=== PATIENT | female | born 1935 | race African-American/Black ===

== ENCOUNTER 2017-09-16 22:47 | Observation (INO) | payer MEDICARE ==
[2017-09-16 23:09] VITALS: RESP 18
[2017-09-16] MEDS ORDERED: diphenhydrAMINE 50 MG/ML 1 ML VIAL IVP STA (23:12)
[2017-09-16] MEDS ORDERED: methylPREDNISolone SOD SUCCI 125 MG/2 ML VIAL IV STA (23:12)
[2017-09-16] MEDS ORDERED: FAMOTIDINE 20 MG/2 ML VIAL IV STA (23:12)
--- NOTE | 2017-09-16 23:15 | ED ---
General Adult HPI - General Chief complaint: Allergic Reaction Stated complaint: Allergic Reaction Time Seen by Provider: 09/16/17 23:06 Source: patient, RN notes reviewed Mode of arrival: ambulatory Limitations: no limitations - History of Present Illness Initial comments: Patient is a pleasant 81-year-old female presenting to the emergency Department with lip swelling. Onset was a couple hours ago. Symptoms remain despite taking 2 Benadryl pills at home couple hours ago. Patient feels some fullness in her throat as well. Otherwise no dyspnea. Patient states her tongue might feel slightly swollen. Patient does have a history of similar symptoms previously however is unclear why. Review of medications reveals patient is on Lotrel that does contain Benzapril. - Related Data Home Medications Medication Instructions Recorded Confirmed Aspirin [Adult Low Dose Aspirin EC] 81 mg PO DAILY 09/16/17 09/16/17 Calcium Carbonate/Vitamin D3 2 tab PO DAILY 09/16/17 09/16/17 [Calcium 600-Vit D3 400 Tablet] Hydrochlorothiazide [Hydrodiuril] 25 mg PO DAILY 09/16/17 09/16/17 Multivit-Min/Iron/Folic/Lutein 1 tab PO DAILY 09/16/17 09/16/17 [Centrum Silver Women Tablet] [place]-3 Fatty Acids [[place]-3] 1,000 mg PO DAILY 09/16/17 09/16/17 amLODIPine BESYLATE/BENAZEPRIL 1 cap PO DAILY 09/16/17 09/16/17 [Lotrel 10-20 mg Capsule] Allergies Allergy/AdvReac Type Severity Reaction Status Date / Time No Known Allergies Allergy Verified 09/16/17 23:24 Review of Systems ROS Statement: Those systems with pertinent positive or pertinent negative responses have been documented in the HPI. ROS Other: All systems not noted in ROS Statement are negative. Constitutional: Denies: fever Eyes: Denies: eye pain ENT: Denies: ear pain Respiratory: Denies: cough Cardiovascular: Denies: chest pain Endocrine: Denies: fatigue Gastrointestinal: Denies: abdominal pain Genitourinary: Denies: dysuria Musculoskeletal: Denies: back pain Skin: Denies: rash Neurological: Denies: weakness Past Medical History Past Medical History: Hypertension History of Any Multi-Drug Resistant Organisms: None Reported Past Surgical History: Hysterectomy Past Psychological History: No Psychological Hx Reported Smoking Status: Never smoker Past Alcohol Use History: None Reported Past Drug Use History: None Reported General Exam Limitations: no limitations General appearance: alert, in no apparent distress Head exam: Present: atraumatic Eye exam: Present: normal appearance, PERRL ENT exam: Present: other (Mild to moderate angioedema on the right side upper and lower lips. No tongue swelling. Mild edema of the uvula, more on the left side) Neck exam: Present: normal inspection Respiratory exam: Present: normal lung sounds bilaterally. Absent: respiratory distress, wheezes Cardiovascular Exam: Present: regular rate, normal rhythm GI/Abdominal exam: Present: soft. Absent: tenderness Extremities exam: Present: normal inspection Neurological exam: Present: alert Psychiatric exam: Present: normal affect, normal mood Skin exam: Present: normal color Course Vital Signs 09/16/17 09/16/17 22:56 23:07 Temperature 98.3 F Pulse Rate 86 Respiratory 20 18 Rate Blood Pressure 175/74 O2 Sat by Pulse 96 Oximetry - Reevaluation(s) Reevaluation #1: 09/16/17 23:14 Patient is advised to discontinue Lotrel until further evaluation and that this may be the cause of her symptoms. Medical Decision Making - Medical Decision Making Patient reevaluated with only mild improvement. Patient updated on plan. Dr. Bradley has been paged for admission. Disposition Clinical Impression: Angioedema Disposition: ADMITTED IP TO THIS HOSP Is patient prescribed a controlled substance at d/c from ED?: No Referrals: Twin Bradley MD [Primary Care Provider] - 1-2 days Decision Time: 00:42
[2017-09-17] MEDS ORDERED: NALOXONE 0.4 MG/ML 1 ML VIAL IV PRN (00:42)
[2017-09-17] MEDS ORDERED: SODIUM CHLORIDE 0.9% 1,000 ML IV SCH (00:45)
[2017-09-17] MEDS: diphenhydrAMINE 50 MG/ML 1 ML VIAL IVP SCH ×2 (05:20→12:50)
[2017-09-17] MEDS: methylPREDNISolone SOD SUCCI 125 MG/2 ML VIAL IV SCH ×2 (05:21→12:51)
--- NOTE | 2017-09-17 07:40 | P.HPIM ---
History of Present Illness Chief Complaint: Facial swelling This is a history of physical on an 81-year-old black female with known history of hypertension. The patient states that [place] that she to believe does not eat and started having facial edema and some fullness in swallowing. No pain no shortness of breath. No cough stated. The patient then presented to the emergency room and was diagnosed with appropriate angioedema. She's been on Lotrel for many many years and has an underlying history of hypertension which is stable. The patient does not describe any diarrhea or urticaria stated. No overt itching stated. No significant fever or chills are noted. She is now admitted for appropriate methylprednisone and antihistamine. ? need for Iticabant. Review of Systems Constitutional: Denies chills, Denies fever Eyes: denies blurred vision, denies pain Ears, nose, mouth and throat: Denies headache, Denies sore throat Cardiovascular: Denies chest pain, Denies shortness of breath Respiratory: Denies cough Integumentary: Reports rash Past Medical History Past Medical History: Hypertension History of Any Multi-Drug Resistant Organisms: None Reported Past Surgical History: Hysterectomy Past Psychological History: No Psychological Hx Reported Smoking Status: Never smoker Past Alcohol Use History: None Reported Past Drug Use History: None Reported - Past Family History Father Family Medical History: No Reported History Medications and Allergies Home Medications Medication Instructions Recorded Confirmed Type Aspirin [Adult Low Dose Aspirin EC] 81 mg PO DAILY 09/16/17 09/16/17 History Calcium Carbonate/Vitamin D3 2 tab PO DAILY 09/16/17 09/16/17 History [Calcium 600-Vit D3 400 Tablet] Hydrochlorothiazide [Hydrodiuril] 25 mg PO DAILY 09/16/17 09/16/17 History Multivit-Min/Iron/Folic/Lutein 1 tab PO DAILY 09/16/17 09/16/17 History [Centrum Silver Women Tablet] [place]-3 Fatty Acids [[place]-3] 1,000 mg PO DAILY 09/16/17 09/16/17 History amLODIPine BESYLATE/BENAZEPRIL 1 cap PO DAILY 09/16/17 09/16/17 History [Lotrel 10-20 mg Capsule] Allergies Allergy/AdvReac Type Severity Reaction Status Date / Time No Known Allergies Allergy Verified 09/16/17 23:24 Physical Exam Vitals: Vital Signs Temp Pulse Pulse Resp BP BP Pulse Ox 09/17/17 04:57 97.6 F 86 18 148/70 100 09/17/17 01:19 76 18 156/79 100 09/16/17 23:07 18 09/16/17 22:56 98.3 F 86 20 175/74 96 Intake and Output 09/16/17 09/17/17 09/17/17 22:59 06:59 14:59 Other: Voiding Method Toilet # Voids 2 Weight 63.957 kg - Constitutional General appearance: no acute distress - EENT Eyes: EOMI - Neck Neck: no lymphadenopathy - Respiratory Respiratory: bilateral: CTA - Cardiovascular Rhythm: regular Heart sounds: normal: S1, S2 Abnormal Heart Sounds: no S3 Gallop - Gastrointestinal General gastrointestinal: soft, no tenderness - Integumentary Edema of the face. - Neurologic Neurologic: CNII-XII intact - Musculoskeletal Musculoskeletal: gait normal Thrombosis Risk Factor Assmnt - Choose All That Apply Each Risk Factor Represents 3 Points: Age 75 years or older Thrombosis Risk Factor Assessment Total Risk Factor Score: 3 Thrombosis Risk Factor Assessment Level: Moderate Risk Assessment and Plan (1) Hypertension Current Visit: Yes Status: Acute Code(s): I10 - ESSENTIAL (PRIMARY) HYPERTENSION SNOMED Code(s): 91352391 Plan: Continue current regimen treatment. Anticipate discharge in a.m. We will switch from Lotrel to Cozaar and Norvasc. The patient is significant improving. Otherwise, the patient is full code.
[2017-09-17 08:02] VITALS: BP 170/77; PULSE 51; TEMP 97.7
[2017-09-17] MEDS ORDERED: ASPIRIN 81 MG PO SCH (09:00)
[2017-09-17] MEDS ORDERED: LOSARTAN 50 MG TAB PO SCH (09:00)
[2017-09-17] MEDS ORDERED: amLODIPine 5 MG TAB PO SCH (09:00)
[2017-09-17] MEDS ORDERED: CALCIUM CARB-VIT D 500MG-200UN 1 EACH TAB PO SCH (09:00)
[2017-09-17] MEDS ORDERED: FAMOTIDINE 20 MG/2 ML VIAL IV SCH (09:00)
[2017-09-17] MEDS ORDERED: NON-FORMULARY DRUG (Omega-3 Fatty Acids [Omega-3] 1,000 MG) PO SCH (09:00)
[2017-09-17] MEDS ORDERED: HYDROCHLOROTHIAZIDE 25 MG TAB PO SCH (09:00)
[2017-09-17] MEDS ORDERED: MULTIVITAMINS, THERA 1 EACH TAB PO SCH (12:00)
--- NOTE | 2017-09-17 15:05 | P.DS ---
Providers Date of admission: 09/17/17 00:42 Expected date of discharge: 09/17/17 Attending physician: Twin Bradley Primary care physician: Twin Bradley - Discharge Diagnosis(es) (1) Hypertension Current Visit: Yes Status: Acute Hospital Course: This is discharge from an 7-year-old black female sounds admitted for anaphylaxis/angioedema. We stopped her DYLON inhibitor and put her on Cozaar instead. The patient is not tolerating diet. She wished to be discharged a little earlier than I preferred, but she understands her risks and benefits of her choice. She does have a daughter who is a nurse who will observe her closely. She will follow-up with me in about a couple days. The patient is discharged in stable condition. Plan - Discharge Summary New Discharge Prescriptions: New amLODIPine [Norvasc] 10 mg PO DAILY #30 tab Losartan [Cozaar] 50 mg PO DAILY #30 tab predniSONE 0 mg PO DIRECTED #18 tab Continue Multivit-Min/Iron/Folic/Lutein [Centrum Silver Women Tablet] 1 tab PO DAILY Calcium Carbonate/Vitamin D3 [Calcium 600-Vit D3 400 Tablet] 2 tab PO DAILY Aspirin [Adult Low Dose Aspirin EC] 81 mg PO DAILY Hydrochlorothiazide [Hydrodiuril] 25 mg PO DAILY [place]-3 Fatty Acids [[place]-3] 1,000 mg PO DAILY Discontinued amLODIPine BESYLATE/BENAZEPRIL [Lotrel 10-20 mg Capsule] 1 cap PO DAILY Discharge Medication List Aspirin [Adult Low Dose Aspirin EC] 81 mg PO DAILY 09/16/17 [History] Calcium Carbonate/Vitamin D3 [Calcium 600-Vit D3 400 Tablet] 2 tab PO DAILY [History] Hydrochlorothiazide [Hydrodiuril] 25 mg PO DAILY 09/16/17 [History] Multivit-Min/Iron/Folic/Lutein [Centrum Silver Women Tablet] 1 tab PO DAILY [History] [place]-3 Fatty Acids [[place]-3] 1,000 mg PO DAILY 09/16/17 [History] Losartan [Cozaar] 50 mg PO DAILY #30 tab 09/17/17 [Rx] amLODIPine [Norvasc] 10 mg PO DAILY #30 tab 09/17/17 [Rx] predniSONE 0 mg PO DIRECTED #18 tab 09/17/17 [Rx] Follow up Appointment(s)/Referral(s): Twin Bradley MD [Primary Care Provider] - 1-2 days Discharge Disposition: HOME SELF-CARE
== END 2017-09-17 15:39 | disposition home or self-care (01) ==
LOC: EC 22:47 → 5MS5E 09-17 00:42
PROVIDERS: ADMIT Family Medicine; ATTEND Family Medicine
DX: T78.3XXA Angioneurotic edema, initial encounter (principal); I10 Essential (primary) hypertension; Z79.82 Long term (current) use of aspirin; Z79.899 Other long term (current) drug therapy; Z90.710 Acquired absence of both cervix and uterus
CPT/HCPCS: 99285 ×2; 96374 ×2; 96375 ×3; 96376; G0378; J1200 ×2; J2930 ×2

== ENCOUNTER → 2017-10-08 | Outpatient (CLI) | payer MEDICARE ==
[2017-10-08 11:32] LABS: Basophils % (A) 1 %; Eosinophils # (A) 0.2 k/uL (0-0.7); Eosinophils % (A) 5 %; HCT 36.3 % (34.0-46.0); HGB 11.8 gm/dL (11.4-16.0); Lymphocytes # (A) 0.9 k/uL (1.0-4.8); Lymphocytes % (A) 24 %; MCH 28.1 pg (25.0-35.0); MCHC 32.5 g/dL (31.0-37.0); MCV 86.5 fL (80.0-100.0); Mean Platelet Volume 6.5; Monocytes # (A) 0.2 k/uL (0-1.0); Monocytes % (A) 5 %; Neutrophils # (A) 2.3 k/uL (1.3-7.7); Neutrophils % (A) 64 %; Platelet Count 294 k/uL (150-450); RDW 12.6 % (11.5-15.5); WBC 3.6 k/uL (3.8-10.6)
== END ==
LOC: LABWHC1 10:46
PROVIDERS: ATTEND Allergy & Immunology
DX: T78.3XXA Angioneurotic edema, initial encounter (principal)
CPT/HCPCS: 36415; 85025; 86160; 86161

== ENCOUNTER → 2017-10-22 | Outpatient (CLI) | payer MEDICARE | END | disposition home or self-care (01) | LOC: LABWHC1 11:16 | PROVIDERS: ATTEND Allergy & Immunology | DX: T78.3XXA Angioneurotic edema, initial encounter (principal) | CPT/HCPCS: 36415; 86003 ==

== ENCOUNTER 2019-10-16 14:22 | Emergency (ER) | payer MEDICARE ==
[2019-10-16 14:27] VITALS: BP 170/78; PULSE 88; RESP 18; TEMP 98.4
[2019-10-16] MEDS ORDERED: ERYTHROMYCIN 5 MG/GM OPHTH OINT 3.5 GM TUBE RIGHT EYE STA (14:42)
--- NOTE | 2019-10-16 14:42 | ED ---
General Adult HPI - General Source: patient, RN notes reviewed, old records reviewed Mode of arrival: ambulatory Limitations: no limitations <Leonides Lr - Last Filed: 10/16/19 14:46> <Angie Torres - Last Filed: 10/19/19 01:35> - General Chief complaint: Eye Problems Stated complaint: eye problems Time Seen by Provider: 10/16/19 14:27 - History of Present Illness Initial comments: 83-year-old female patient past history of hypertension presents to the chief complaint of right lower eyelid swelling and has been ongoing for 2 days. Patient denies any headaches, changes in vision. Patient is not a contact lens user. Denies any trauma or scratches to the eye. Systemic: Pt denies fatigue, fever/chills, rash. Pt denies weakness, night sweats, weight loss. Neuro: Pt denies headache, visual disturbances, syncope or pre-syncope. HEENT: Pt denies ocular discharge or irritation, otalgia, rhinorrhea, pha ryngitis or notable lymphadenopathy. Cardiopulmonary: Pt denies chest pain, SOB, heart palpitations, dyspnea on exertion. Abdominal/GI: Pt denies abdominal pain, n/v/d. : Pt denies dysuria, burning w/ urination, frequency/urgency. Denies new onset urinary or bowel incontinence. MSK: Pt denies myalgia, loss of strength or function in extremities. Neuro: Pt denies new onset weakness, paresthesias. (Leonides Lr) - Related Data Home Medications Medication Instructions Recorded Confirmed Aspirin [Adult Low Dose Aspirin EC] 81 mg PO DAILY 09/16/17 09/16/17 Calcium Carbonate/Vitamin D3 2 tab PO DAILY 09/16/17 09/16/17 [Calcium 600-Vit D3 400 Tablet] Hydrochlorothiazide [Hydrodiuril] 25 mg PO DAILY 09/16/17 09/16/17 Multivit-Min/Iron/Folic/Lutein 1 tab PO DAILY 09/16/17 09/16/17 [Centrum Silver Women Tablet] [place]-3 Fatty Acids [[place]-3] 1,000 mg PO DAILY 09/16/17 09/16/17 Previous Rx's Medication Instructions Recorded Losartan [Cozaar] 50 mg PO DAILY #30 tab 09/17/17 amLODIPine [Norvasc] 10 mg PO DAILY #30 tab 09/17/17 predniSONE [Deltasone] 0 mg PO DIRECTED #18 tab 09/17/17 Erythromycin Ophth Oint [Romycin 1 applic RIGHT EYE QID 5 Days #1 10/16/19 Ophth Oint] tube Allergies Allergy/AdvReac Type Severity Reaction Status Date / Time No Known Allergies Allergy Verified 10/16/19 14:24 Review of Systems ROS Other: All systems not noted in ROS Statement are negative. <Leonides Lr - Last Filed: 10/16/19 14:46> ROS Other: All systems not noted in ROS Statement are negative. <Angie Torres - Last Filed: 10/19/19 01:35> ROS Statement: Those systems with pertinent positive or pertinent negative responses have been documented in the HPI. Past Medical History Past Medical History: Hypertension History of Any Multi-Drug Resistant Organisms: None Reported Past Surgical History: Hysterectomy Past Psychological History: No Psychological Hx Reported Smoking Status: Never smoker Past Alcohol Use History: None Reported Past Drug Use History: None Reported - Past Family History Father Family Medical History: No Reported History <Leonides Lr - Last Filed: 10/16/19 14:46> General Exam Limitations: no limitations <Leonides Lr - Last Filed: 10/16/19 14:46> - General Exam Comments Initial Comments: Constitutional: NAD, AOX3, Pt has pleasant affect. HEENT: NC/AT, trachea midline. External ears appear normal, without discharge. Mucous membranes moist. Eyes PERRLA, EOM intact. There is no scleral icterus. Right lower eyelid swelling, consistent with hordeolum. No pallor noted. No c onjunctivitis or injection. Cardiopulmonary: RRR, no murmurs, rubs or gallops, no JVD noted. Lungs CTAB in anterior and posterior marshall. No peripheral edema. Neuro: CN II-XII grossly intact. No nuchal rigidity. No raccon eyes, no hodgson sign, no hemotympanum. No cervical spinal tenderness. MSK:Full active ROM in upper and lower extremities, 5/5 stregnth. (Leonides Lr) Course Vital Signs 10/16/19 14:25 Temperature 98.4 F Pulse Rate 88 Respiratory 18 Rate Blood Pressure 170/78 O2 Sat by Pulse 99 Oximetry Medical Decision Making <Leonides Lr - Last Filed: 10/16/19 14:46> <Angie Torres - Last Filed: 10/19/19 01:35> - Medical Decision Making 83-year-old female patient presents to ED with cheif complaint right lower eyelid swelling ongoing for 2 days. Denies any changes in vision headaches. Leander morin presents with mild hypertension. Patient advised follow-up with her primary care provider monitor blood pressure at home. She denies any headaches. Physical exam is hordeolum. Patient will be initiated on azithromycin and advised on warm compresses and will have outpatient ophthalmology follow-up tomorrow. Return to ER if condition worsens. Case discussed with Dr. Torres. (Leonides Lr) I was available for consultation in the emergency department. The history and physical exam were done by the midlevel provider. I was consulted for this patients care. I reviewed the case with the midlevel provider and based on their presentation of the patient, I agree with the assessment, medical decision making and plan of care as documented. Chart was dictated using [employer] dictation software. Attempts were made to correct any dictation errors however some typographical errors may persist. Patient was seen during a national state of emergency due to the Covid-19 pandemic. (Angie Torres) Disposition Is patient prescribed a controlled substance at d/c from ED?: No <Leonides Lr - Last Filed: 10/16/19 14:46> <Angie Torres - Last Filed: 10/19/19 01:35> Clinical Impression: Hordeolum Disposition: HOME SELF-CARE Condition: Stable Instructions (If sedation given, give patient instructions): Stye (ED), Warm Compress or Soak (ED) Additional Instructions: Follow-up with medical officer as well as primary care provider tomorrow. Use antibiotics as directed. Return to ER if condition worsens in any way. Use 1/2 inch of erythromycin ointment every 6 hours for the next 5 days. Prescriptions: Erythromycin Ophth Oint [Romycin Ophth Oint] 1 applic RIGHT EYE QID 5 Days #1 tube Referrals: Kristofer Byrnes MD [Primary Care Provider] - 1-2 days Kristen Hernandez MD [STAFF PHYSICIAN] - 1-2 days
== END 2019-10-16 15:01 | disposition home or self-care (01) ==
LOC: EC 14:22
DX: H00.012 Hordeolum externum right lower eyelid (principal); I10 Essential (primary) hypertension; Z79.82 Long term (current) use of aspirin; Z79.899 Other long term (current) drug therapy
CPT/HCPCS: 99283

== ENCOUNTER 2019-10-28 12:25 | Emergency (ER) | payer MEDICARE ==
[2019-10-28 12:43] VITALS: RESP 18
[2019-10-28] MEDS ORDERED: PROPARACAINE 0.5% OPHTH DROPS 15 ML BTL RIGHT EYE STA (12:54)
[2019-10-28] MEDS ORDERED: DIPH,PERTUS(ACELL)TETVAC-LF 0.5 ML VIAL IM ONE (12:54)
[2019-10-28] MEDS ORDERED: FLUORESCEIN STRIPS 1 MG STRIP LEFT EYE ONE (13:07)
--- NOTE | 2019-10-28 13:37 | ED ---
General Adult HPI - General Chief complaint: Eye Problems Stated complaint: Bleach in eye Time Seen by Provider: 10/28/19 12:50 Source: patient, RN notes reviewed, old records reviewed Mode of arrival: ambulatory Limitations: no limitations - History of Present Illness Initial comments: 83-year-old female patient presents ED for chief complaint of splashing bleach in her left eye. Patient reports that she was pouring bleach into the toilet and some of it splashed out of the toilet bowl and into her left eye. She states that she attempted to irrigate initially with eyewash. Is still having burning her left eye. Denies any other complaints. States that her vision is at baseline. - Related Data Home Medications Medication Instructions Recorded Confirmed Aspirin [Adult Low Dose Aspirin EC] 81 mg PO DAILY 09/16/17 09/16/17 Calcium Carbonate/Vitamin D3 2 tab PO DAILY 09/16/17 09/16/17 [Calcium 600-Vit D3 400 Tablet] Hydrochlorothiazide [Hydrodiuril] 25 mg PO DAILY 09/16/17 09/16/17 Multivit-Min/Iron/Folic/Lutein 1 tab PO DAILY 09/16/17 09/16/17 [Centrum Silver Women Tablet] [place]-3 Fatty Acids [[place]-3] 1,000 mg PO DAILY 09/16/17 09/16/17 Previous Rx's Medication Instructions Recorded Losartan [Cozaar] 50 mg PO DAILY #30 tab 09/17/17 amLODIPine [Norvasc] 10 mg PO DAILY #30 tab 09/17/17 predniSONE [Deltasone] 0 mg PO DIRECTED #18 tab 09/17/17 Erythromycin Ophth Oint [Romycin 1 applic RIGHT EYE QID 5 Days #1 10/16/19 Ophth Oint] tube Allergies Allergy/AdvReac Type Severity Reaction Status Date / Time No Known Allergies Allergy Verified 10/28/19 12:43 Review of Systems ROS Statement: Those systems with pertinent positive or pertinent negative responses have been documented in the HPI. ROS Other: All systems not noted in ROS Statement are negative. Past Medical History Past Medical History: Hypertension History of Any Multi-Drug Resistant Organisms: None Reported Past Surgical History: Hysterectomy Past Psychological History: No Psychological Hx Reported Smoking Status: Never smoker Past Alcohol Use History: None Reported Past Drug Use History: None Reported - Past Family History Father Family Medical History: No Reported History General Exam - General Exam Comments Initial Comments: Constitutional: NAD, AOX3, Pt has pleasant affect. HEENT: NC/AT, trachea midline. External ears appear normal, without discharge. Mucous membranes moist. Eyes PERRLA, EOM intact. There is no scleral icterus. No pallor noted. Intraocular pressure right side average of 23. Intraocular pressure left side average of 13. Fluorescent stain of left eye did reveal uptake around the pupil region. Cardiopulmonary: RRR, no murmurs, rubs or gallops, no JVD noted. Lungs CTAB in anterior and posterior marshall. No peripheral edema. Neuro: CN II-XII grossly intact. No nuchal rigidity. No raccon eyes, no hodgson sign. MSK: Full active ROM in upper and lower extremities. Limitations: no limitations Course Vital Signs 10/28/19 12:41 Temperature 98.4 F Pulse Rate 97 Respiratory 18 Rate Blood Pressure 190/62 O2 Sat by Pulse 99 Oximetry Medical Decision Making - Medical Decision Making 83-year-old female patient presents to the for evaluation of accidental spell of bleach into her left eye. Eye was immediately irrigated with approximately 500 mL sterile water. Fluorescein stain did reveal uptake around the pupil iris region. Patient reports that symptoms improved greatly. Declines any more burning in her eye. Denies any changes in vision. Discussed case with attending physician Dr. Nieto and consulted with on-call ophthalmology Dr. Goodman who reccomended maxitrol ointment qid and follow up tomorrow. Tetanus updated. Patient does have asymptomatic hypertension. This did improve, she'll follow up with primary care provider for continued evaluation of her blood pressure. Disposition Clinical Impression: Chemical burn of eye Disposition: HOME SELF-CARE Condition: Stable Instructions (If sedation given, give patient instructions): Corneal Abrasion (ED) Additional Instructions: Follow-up with primary care provider as well as senior behavioral scientist tomorrow. Have intraocular pressure rechecked by eye doctor. Call senior behavioral scientist after discharge to set up appointment. Use a small dab of ointment into the affected eye every 6 hours. Return to ER if condition worsens in any way. Is patient prescribed a controlled substance at d/c from ED?: No Referrals: Kristofer Byrnes MD [Primary Care Provider] - 1-2 days Ayaan Goodman MD [STAFF PHYSICIAN] - 1-2 days
[2019-10-28] MEDS ORDERED: NEOMYCIN-POLYMYXIN-DEXAMETH OINT 3.5 GM TUBE LEFT EYE ONE (14:56)
[2019-10-28 15:28] VITALS: BP 175/81; PULSE 88; TEMP 98.7
== END 2019-10-28 15:30 | disposition home or self-care (01) ==
LOC: EC 12:25
DX: T26.92XA Corrosion of left eye and adnexa, part unspecified, initial encounter (principal); I10 Essential (primary) hypertension; Z23 Encounter for immunization; Z79.82 Long term (current) use of aspirin; Z79.899 Other long term (current) drug therapy
CPT/HCPCS: 90471; 90715; 99283

== ENCOUNTER 2020-01-05 18:43 | Emergency (ER) | payer MEDICARE, BC ==
[2020-01-05] MEDS ORDERED: DIPH,PERTUS(ACELL)TETVAC-LF 0.5 ML VIAL IM ONE (19:31)
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
--- NOTE | 2020-01-05 20:02 | CT ---
EXAMINATION TYPE: CT brain cspine wo con, CT facial bones wo con DATE OF EXAM: 01/05/2020 COMPARISON: NONE HISTORY: Fall injury, left frontal/supraorbital pain and swelling. Headache and neck pain. CT DLP: 1110.7 mGycm. Automated Exposure Control for Dose Reduction was Utilized. TECHNIQUE: CT scan of the head , facial bones, and cervical spine are performed without contrast. FINDINGS: There is no acute intracranial hemorrhage or midline shift identified. Mild ventricular a nd sulcal prominence. The calvarium is intact. The mandible is intact. The temporomandibular joints are maintained bilaterally. Nasal bones are inta ct. The orbital floors and worley are intact. There are incidental scleral calcifications bilaterally. Intraconal fat is preserved bilaterally. The zygomatic arches are intact bilaterally. The pterygoid plates are intact bilaterally. Paranasal sinuses are clear. There is small to moderate size left scal p hematoma from the left supraorbital region over the orbit and zygoma extending to level of the left maxillary sinus. Cervical spine is visualized in its entirety from C1 through upper thoracic levels and demonstrates l oss of normal cervical curvature with dextroconvex scoliosis centered in the midthoracic spine withou t evidence of acute fracture or dislocation. Prevertebral soft tissue appears within normal limits. The C1-C2 articulation is within normal limits on the coronal images. Vertebral body heights are ma intained. Advanced disc space narrowing C3-C4 level with some ossific fusion. Moderate to advanced di sc space narrowing and spurring along with subchondral cystic change C4-C5 and C5-C6 levels. Moderate disc space narrowing C6-C7 level. Slight grade 1 retrolisthesis C4 on C5. Axial images show marked narrowing at the level of foramen magnum due to markedly thickened anterior longitudinal ligament, findings correlate with sagittal image 42. There are multilevel uncovertebral and facet degenerative changes contributing to multilevel bilateral neural foraminal narrowing. There is suspicious greater than 1 cm left thyroid nodules that warrant follow-up. Lung apices show no pne umothorax. IMPRESSION: 1. There is no acute fracture or dislocation evident in the cervical spine. Left-sided thyroid nodule s warrant nonemergent ultrasound follow-up. Spinal canal compression at level of foramen magnum warra nts nonemergent neurosurgical follow-up. 2. No acute intracranial hemorrhage or midline shift is seen. 3. No acute facial bone fracture or dislocation. Small to moderate size left sided facial subcutaneou s hematoma.
[2020-01-05 21:14] VITALS: BP 145/95; PULSE 98; RESP 19; TEMP 98
== END 2020-01-05 21:00 | disposition home or self-care (01) ==
LOC: MERGE 18:43 → EC 18:43 → SUPCPDRO 18:43 → EC 21:00
DX: S01.81XA Laceration without foreign body of other part of head, initial encounter (principal); S80.212A Abrasion, left knee, initial encounter; G95.20 Unspecified cord compression; E04.1 Nontoxic single thyroid nodule; I10 Essential (primary) hypertension; Z23 Encounter for immunization; Z91.02 Food additives allergy status; V18.4XXA Pedal cycle driver injured in noncollision transport accident in traffic accident, initial encounter; Y93.9 Activity, unspecified; Y92.89 Other specified places as the place of occurrence of the external cause
CPT/HCPCS: 12011; 70450; 70486; 72125; 90471; 90715; 99283

== ENCOUNTER → 2020-08-14 | Outpatient (CLI) | payer MEDICARE, BC ==
--- NOTE | 2020-08-14 10:29 | P.STRESS ---
- Stress Test Note Stress Test Results/Findings: Exam Performed: stress echo exercise Exam Date: 08/14/20 Reason for Exam: Chest pain Height: 5 ft 5 in Weight: 150 kg Protocol: Akash Stage: I Duration of Exercise: 3:28 Resting Heart Rate: 75 Resting Blood Pressure: 128/55 Maximum Achieved Heart Rate: 131 Maximum Achieved Blood Pressure: 196/65 85% PMHR: 115 100% PMHR: 135 METS: 4.4 Technologist Comment: Stress Test Results/Findings: This is a 84-year-old female with history of hypertension being evaluated for cardiac status and chest pains. Stress data: Baseline EKG showed sinus rhythm with diffuse nonspecific ST-T abnormalities. Blood pressure at rest is 128/55, pulse rate of 75. Patient walked on the Akash protocol for 3 minutes and 28 seconds achieving a maximal heart rate of 131 with a blood pressure 196/65. EKGs taken during and after exercise showed mildly pronounced ST-T changes in inferolateral leads which are felt to be nonspecific. Patient did not experience any chest pain. Echo data: Baseline echo images show normal wall motion and thickening. Exercise echo images showed augmentation of wall motion and thickening in all the segments. Final impression: #1. Negative stress test #2. Negative stress echo.
== END | disposition home or self-care (01) ==
LOC: RADNMMAIN 09:14
PROVIDERS: ATTEND Internal Medicine
DX: R07.9 Chest pain, unspecified (principal)
CPT/HCPCS: 93351